=== PATIENT | male | born 1965 | race Caucasian/White ===

== ENCOUNTER → 2025-09-02 | Day surgery (SDC) | payer MEDICARE, OTHER ==
[~2025-09-02] MED LIST: Propofol 200 MG/20 ML SDV ONE; fentaNYL 100 MCG/2 ML SDV ONE
[2025-09-02] MEDS: Lactated Ringers 1,000 ML IV SCH (10:05)
== END ==
LOC: VM.SDS 09:48
PROVIDERS: ATTEND Surgery
DX: Z12.11 Encounter for screening for malignant neoplasm of colon (principal); K57.30 Diverticulosis of large intestine without perforation or abscess without bleeding; E66.811 Obesity, class 1; Z68.30 Body mass index [BMI] 30.0-30.9, adult; Z86.0101 Personal history of adenomatous and serrated colon polyps
CPT/HCPCS: G0105; J2704; J3010; J7120